=== PATIENT | male | born 2000 | race Caucasian/White ===

== ENCOUNTER 2022-10-27 17:14 | Emergency (ER) | payer MEDICAID ==
[~2022-10-27] VITALS: Ht 172.7 cm; Wt 82.0 kg
[2022-10-27 17:17] VITALS: BP 122/60
== END 2022-10-27 20:03 | disposition home or self-care (01) ==
LOC: ER 17:14
DX: Z48.00 Encounter for change or removal of nonsurgical wound dressing (principal)
CPT/HCPCS: 99283